=== PATIENT | male | born 2000 | race Caucasian/White ===

== ENCOUNTER 2024-04-30 14:59 | Emergency (ER) | payer OTHER, SELFPAY ==
--- NOTE | ~2024-04-30 | XR_ITS ---
XR ankle RT min 3V DATE: 04/30/2024 15:23 INDICATION: Fall playing basketball. Right lateral ankle pain and swelling TECHNIQUE: 4 views COMPARISON: None FINDINGS: There is prominent anterolateral swelling of the lower leg and ankle. No fracture or disloc ation is detected. IMPRESSION: Prominent anterolateral swelling of distal lower leg and ankle; no fracture or dislocatio n Reviewed, dictated and finalized at location A. IMPRESSION: Prominent anterolateral swelling of distal lower leg and ankle; no fracture or dislocation
--- NOTE | 2024-04-30 15:03 | ED.GENADULT ---
HPI - General Adult General Chief complaint: Extremity Injury, Lower Stated complaint: INJURED R ANKLE Time Seen by Provider: 04/30/24 15:03 Source: patient Mode of arrival: ambulatory Limitations: no limitations History of Present Illness HPI narrative: 23-year-old male patient presents to the [facility] with complaints of right ankle pain. Patient states that he was playing basketball today and came down and twisted his ankle. Patient denies taking anything for pain prior to arrival. Patient states he really has not walked on it since injuring it. Denies any numbness or tingling to the foot or toes. Related Data Allergies Allergy/AdvReac Type Severity Reaction Status Date / Time cephalexin (From Keflex) AdvReac Mild Nausea Verified 04/30/24 15:11 Review of Systems Review of Systems: CONSTITUTIONAL: Denies fever, chills, or sweats. EYES: Denies visual changes, redness, or discharge. ENT: Denies rhinorrhea, congestion, sore throat, or otalgia. CARDIOVASCULAR: Denies chest pain, palpitations, or edema. RESPIRATORY: Denies cough or dyspnea. GASTROINTESTINAL: Denies abdominal pain, nausea, vomiting, or diarrhea. GENITOURINARY: Denies dysuria or hematuria. SKIN: Denies rash or itching. MUSCULOSKELETAL: Denies back pain, joint pain, or myalgia. Positive right ankle swelling and pain NEUROLOGIC: Denies headache, numbness, or weakness. PSYCHIATRIC: Denies anxiety or depression. [facility] Past Medical History Medical History Acne Seasonal allergies Surgical History Surgical History History of appendectomy (~2016) Family History Family History Grandparent Cancer Hypertension Father Thyroid disorder Social History Social History Smoking status: Never smoker Alcohol intake: never Substance use: never Substance use type: does not use Lack of Transportation: No Lack of Food: Never True Current Housing: I Have Housing Concerned About Future Housing: No Difficulty Paying Gas/Electric Bills: No Difficulty Paying for Meds: No Currently Unemployed: No Education: High School Diploma/GED Difficulty w/ Childcare or Family Care: No Living arrangements: alone Occupation/Education: student Additional occupation/education comments: [employer] Gender identity (if verbalized by the patient): Male Sexual Orientation (if Verbalized by the Patient): Straight or Heterosexual Spiritual care concerns: No Agree to blood products: Yes Exam Narrative: GENERAL: Well-appearing, well-nourished, and in no acute distress. HEAD: Normocephalic, atraumatic. EYES: PERRLA and EOMI. ENT: Nares clear, no rhinorrhea or epistaxis. Mucous membranes moist. NECK: Supple. No lymphadenopathy CHEST: Clear to auscultation. No respiratory distress. HEART: Regular rate and rhythm. No murmur heard. Normal peripheral pulses. ABDOMEN: Soft, nontender, nondistended, normal active bowel sounds. EXTREMITIES: Patient is unable to bear weight and ambulate without pain on the right ankle. The R ankle is with obvious asymmetry but no deformity when compared to the L ankle. Patient can flex/extend, invert/ailyn. significant soft tissue swelling noted over the lateral malleolus. body tenderness to palpation over the lateral malleolus. Anterior talofibular ligament, posterior talofibular ligament, calcaneofibular ligament nontender and without swelling. No tenderness or deformity of the midfoot or over the proximal fifth metatarsal. Good DP and posterior tibial pulses and sensation to light touch normal. Talar tilt test is negative for ligament laxity to valgus or vargus stress. Negative anterior draw. Peroneal nerve is intact with strong eversion and plantar flexion. SKIN: Warm, dry, no rash. NEURO: No focal deficits. Alert and oriented x3. Course Course Level of Care: Express Care Visit Reevaluation(s) Reevaluation #1: Re-evaluated patient notified him that his x-rays negative for any acute fracture. Patient needs to follow-up with primary care doctor before returning to work. May take Tylenol and ibuprofen as needed for pain. [place] wrap and crutches were provided today. Date: 04/30/24 Time: 17:00 Vital Signs Vital signs: Vital Signs Temperature 36.6 C 04/30/24 15:09 Pulse Rate 113 H 04/30/24 15:09 Respiratory Rate 16 04/30/24 15:09 Blood Pressure 122/81 04/30/24 15:09 Pulse Oximetry 100 04/30/24 15:09 Temperature 36.6 C 04/30/24 15:09 Pulse Rate 113 H 04/30/24 15:09 Respiratory Rate 16 04/30/24 15:09 Blood Pressure 122/81 04/30/24 15:09 Pulse Oximetry 100 04/30/24 15:09 Vital signs reviewed. Medical Decision Making MDM Narrative Medical decision making narrative: plan care for patients to x-ray the right ankle to assess for any acute fracture. Will provide ibuprofen to help with pain as well as an ice pack. I will reassess patient once this has resulted. Differential Diagnosis Differential Diagnosis: Differential diagnosis: Foot fracture, crush injury, compartment syndrome, contusion, sprain, tendinitis,lisfranc sprain or fracture, avulsion fracture, grown toenail, diabetic ulcer. Vital Signs Vital Signs: Vital Signs Temperature 36.6 C 04/30/24 15:09 Pulse Rate 113 H 04/30/24 15:09 Respiratory Rate 16 04/30/24 15:09 Blood Pressure 122/81 04/30/24 15:09 Pulse Oximetry 100 04/30/24 15:09 Temperature 36.6 C 04/30/24 15:09 Pulse Rate 113 H 04/30/24 15:09 Respiratory Rate 16 04/30/24 15:09 Blood Pressure 122/81 04/30/24 15:09 Pulse Oximetry 100 04/30/24 15:09 Imaging Data Radiologist's impression: [facility] [address] [place], [place] [id number] XRay Report Signed Patient: Herb Parker : 2000 MR#: [id number] Age: 23 Acct:[id number] Loc: [facility] ADM Date: 04/30/24Attending Dr: Ordering Physician: Danyelle Kohler BAND SINGER Date of Service: 04/30/24 Procedure(s): XR ankle RT min 3V Accession Number(s): [id number] cc: CONFIGURATION MANAGEMENT MANAGER PHYSICIAN; Danyelle Kohler BAND SINGER~ XR ankle RT min 3V DATE: 04/30/2024 15:23 INDICATION: Fall playing basketball. Right lateral ankle pain and swelling TECHNIQUE: 4 views COMPARISON: None FINDINGS: There is prominent anterolateral swelling of the lower leg and ankle. No fracture or dislocation is detected. IMPRESSION: Prominent anterolateral swelling of distal lower leg and ankle; no fracture or dislocation Reviewed, dictated and finalized at location A. Critical Care Time Critical Care Time Critical Care Time: No Discharge Plan Discharge Clinical Impression: Moderate right ankle sprain Qualifiers: Encounter type: initial encounter Qualified Code(s): S93.401A - Sprain of unspecified ligament of right ankle, initial encounter Patient Disposition: Home, Self-Care Condition: Stable Instructions: Antibiotic Form, Ankle Sprain (ED) Additional Instructions: Avoid weight bearing until the pain subsides. Ice to the area 20-30 minutes 4-6 times a day Elevate above heart Elastic wrap or orthopedic splint as directed for comfort for the next 5-7 days Crutches as directed if needed Tylenol for lesser pain Ibuprofen regularly for the next 2-3 days for the inflammation Follow up with your primary care provider if the condition is not improving within 1 week or sooner if the Condition worsens with numbness, tingling, decrease sensation with weakness to seek ER. Patient Language: Khmer Follow-up/Referrals: PHYSICIAN,CONFIGURATION MANAGEMENT MANAGER [Primary Care Provider] - Stand Alone Forms: Work/School Release IP Time of Disposition: 16:58
[2024-04-30 15:09] VITALS: BP 122/81; PULSE 113; RESP 16; TEMP 36.6; O2SAT 100
[2024-04-30] MEDS: IBUPROFEN 400 MG TABLET 800 MG PO (15:44)
--- NOTE | 2024-04-30 16:49 | PC.NURSE ---
PT ADVISED CONTINUE TO AWAIT THE READING OF THE X RAY FROM THE RADIOLOGIST. DENIES NEW CONCERNS OR COMPLAINTS.
== END 2024-04-30 17:06 | disposition home or self-care (01) ==
PROVIDERS: Emergency Provider Nurse Practitioner Family
DX: S93.401A Sprain of unspecified ligament of right ankle, initial encounter (principal); X50.0XXA Overexertion from strenuous movement or load, initial encounter; Y93.67 Activity, basketball
CPT/HCPCS: 73610; 99213; A9270; G0463